=== PATIENT | male | born 1950 | race African-American/Black ===

== ENCOUNTER 2018-05-14 09:44 | Emergency (ER) | payer BC, OTHER ==
[~2018-05-14] VITALS: Ht 188 cm; Wt 88.0 kg
[2018-05-14] MEDS ORDERED: HYDROCODONE/ACETAMINOPHEN 5/325MG TABLET PO ONE (11:00)
[2018-05-14 12:16] LABS: BASOPHILS % 0.7 % (0.0-2.0); CHLORIDE 106 mEq/L (98-107); EOSINOPHILS % 1.7 % (0.0-5.0); HEMATOCRIT. 43.9 % (42.0-52.0); HEMOGLOBIN. 15.2 g/dL (14.0-18.0); LYMPHOCYTES % 27.7 % (20.0-50.0); MEAN CORPUSCULAR HEMOGLOBIN 31.5 pg (28.0-32.0); MEAN PLATELET VOLUME 8.7 fl (7.4-10.4); MONOCYTES % 12.2 % (2.0-8.0); NEUTROPHILS % 57.7 % (40.0-76.0); PLATELET 182 x1000/uL (130-400); RED BLOOD CELL COUNT 4.82 mill/uL (4.7-6.1); RED CELL DISTRIBUTION WIDTH 12.7 % (11.6-14.6)
[2018-05-14 12:19] LABS: PARTIAL THROMBOPLASTIN TIME 26.1 sec (23.4-31.0); PROTHROMBIN TIME 10.3 sec (9.1-11.1)
[2018-05-14 12:36] LABS: C REACTIVE PROTEIN QUANT 0.8 mg/L (0.0-3.0)
[2018-05-14] MEDS ORDERED: MUPIROCIN 2% OINT 22GM TOP SCH (13:00)
[2018-05-14 13:40] VITALS: BP 182/122
== END 2018-05-14 13:45 | disposition home or self-care (01) ==
LOC: ER 10:17
DX: E11.621 Type 2 diabetes mellitus with foot ulcer (principal); I10 Essential (primary) hypertension; E11.65 Type 2 diabetes mellitus with hyperglycemia; B19.20 Unspecified viral hepatitis C without hepatic coma; F17.200 Nicotine dependence, unspecified, uncomplicated; Z98.890 Other specified postprocedural states
CPT/HCPCS: 36415; 73630; 80048; 85651; 86140; 99284

== ENCOUNTER 2019-11-08 17:20 | Inpatient (IN) | payer MEDICARE, OTHER ==
[~2019-11-08] VITALS: Ht 188 cm; Wt 88.6 kg
[2019-11-08] MEDS ORDERED: SODIUM CHLORIDE 0.9% 1,000 ML IV ONE (18:25)
[2019-11-08] MEDS ORDERED: NITROGLYCERIN 0.4MG TABLET SL SL PRN (18:30)
[2019-11-08] MEDS ORDERED: ASPIRIN 81MG TABLET PO ONE (18:30)
[2019-11-08 20:00] LABS: BASOPHILS % 0.2 % (0.0-2.0); EOSINOPHILS % 0.1 % (0.0-5.0); HEMATOCRIT. 45.1 % (42.0-52.0); HEMOGLOBIN. 15.5 g/dL (14.0-18.0); LYMPHOCYTES % 13.5 % (20.0-50.0); MEAN CORPUSCULAR HEMOGLOBIN 31.6 pg (28.0-32.0); MEAN CORPUSCULAR VOLUME 92.1 fL (80.0-94.0); MEAN PLATELET VOLUME 8.7 fl (7.4-10.4); MONOCYTES % 8.2 % (2.0-8.0); PLATELET 178 x1000/uL (130-400); RED CELL DISTRIBUTION WIDTH 13.1 % (11.6-14.6)
[2019-11-08 20:03] LABS: CHLORIDE 105 mEq/L (98-107)
[2019-11-08 20:09] LABS: D-DIMER 0.61 mg/L FEU (<0.50); PARTIAL THROMBOPLASTIN TIME 26.4 sec (23.4-31.0); PROTHROMBIN TIME 10.8 sec (9.6-11.0)
[2019-11-08 23:23] LABS: CLARITY URINE CLEAR (CLEAR); COLOR URINE YELLOW (YELLOW); KETONES URINE NEGATIVE (NEGATIVE); LEUKOCYTE ESTERASE URINE NEGATIVE (NEGATIVE); NITRITE URINE NEGATIVE (NEGATIVE); OCCULT BLOOD URINE NEGATIVE (NEGATIVE); PH URINE 7.5 (4.5-8.0); PROTEIN URINE 1+ (NEGATIVE); SPECIFIC GRAVITY URINE 1.022 (1.005-1.030)
[2019-11-08] MEDS ORDERED: IOHEXOL-350 100 ML BOTTLE ONE (23:33)
[2019-11-09 05:34] LABS: HEMATOCRIT. 42.7 % (42.0-52.0); HEMOGLOBIN. 15.1 g/dL (14.0-18.0); MEAN CORPUSCULAR HEMOGLOBIN 32.3 pg (28.0-32.0); MEAN CORPUSCULAR VOLUME 91.2 fL (80.0-94.0); MEAN PLATELET VOLUME 8.3 fl (7.4-10.4); PLATELET 166 x1000/uL (130-400); RED BLOOD CELL COUNT 4.69 mill/uL (4.7-6.1); RED CELL DISTRIBUTION WIDTH 13.3 % (11.6-14.6)
[2019-11-09 05:40] LABS: CHLORIDE 106 mEq/L (98-107)
[2019-11-09 05:52] LABS: PLATELET ESTIMATE NORMAL
[2019-11-09] MEDS ORDERED: SODIUM CHLORIDE 0.9% INJ 3ML FLUSH IVF SCH (06:00)
[2019-11-09] MEDS: HYDROCODONE/ACETAMINOPHEN 5/325MG TABLET PO PRN ×2 (06:20→14:23)
[2019-11-09] MEDS ORDERED: METF-416 PO (09:34)
[2019-11-09] MEDS ORDERED: NIFE90TA60 MT (09:34)
[2019-11-09] MEDS ORDERED: ASPI-1497 PO (09:34)
[2019-11-09] MEDS ORDERED: LISI40TA4 PO (09:34)
[2019-11-09] MEDS ORDERED: GLUXL10 PO (09:34)
[2019-11-09] MEDS ORDERED: HYDR25TA PO (09:34)
[2019-11-09] MEDS ORDERED: OMEG-79 MT (09:54)
[2019-11-09] MEDS ORDERED: POLY119P2 MT (15:08)
[2019-11-09] MEDS ORDERED: DOCU-138 MT (15:08)
[2019-11-09 15:10] VITALS: BP 138/72
[2019-11-09 16:00] VITALS: BP 129/88
== END 2019-11-09 17:25 | disposition home or self-care (01) | DRG 206 ==
LOC: ER 17:20 → 5WST 21:35 → EDBEDREQTM 23:19 → EDBEDREQ 23:19 → ENRESERV 11-09 07:45
PROVIDERS: ADMIT Hospitalist; ATTEND Hospitalist
DX: M94.0 Chondrocostal junction syndrome [Tietze] (principal); E11.9 Type 2 diabetes mellitus without complications; I10 Essential (primary) hypertension; K59.00 Constipation, unspecified; Z86.19 Personal history of other infectious and parasitic diseases
CPT/HCPCS: 36415; 71045; 71275; 80048; 80053; 81003; 82962; 83880; 84484; 85025; 85379; 87077; 87186; 93005; 99285; J7030; Q9967